=== PATIENT | female | born 1945 | race Caucasian/White ===

== ENCOUNTER → 2020-04-25 | Outpatient (CLI) | payer MEDICARE, BC ==
--- NOTE | 2020-04-25 16:31 | BD ---
EXAMINATION TYPE: Axial Bone Density DATE OF EXAM: 04/25/2020 COMPARISON: NONE CLINICAL HISTORY: Postmenopausal screening Height: 5 FT 1 3/4 IN Weight: 120 FRAX RISK QUESTIONS: Alcohol (3 or more units per day): NO Family History (Parent hip fracture): NO Glucocorticoids (More than 3mos): NO (Ex: prednisone, prednisolone, methylprednisolone, dexamethasone, and hydrocortisone). History of Fracture in Adulthood: YES Secondary Osteoporosis: 1. Type 1 Diabetes: NO 2. Hyperthyroidism: NO 3. Menopause before 45: NO 4. Malnutrition: NO 5. Chronic liver disease: NO Rheumatoid Arthritis: NO Current Tobacco Use: NO RISK FACTORS HISTORY OF: Family History of Osteoporosis: UNSURE Active: YES Postmenopausal woman: EARLY 50'S Lost more than 2 inches in height since high school: YES MEDICATIONS: Additional Medications: GABAPENTIN Additional History: EXAM MEASUREMENTS: Bone mineral densitometry was performed using the [employer] System. Bone mineral density as measured about the Lumbar spine is: ----- L1-L4(G/cm2): 0.985 T Score Values are as follows: ----- L2: -2.3 ----- L3: -1.8 ----- L4: -0.6 ----- L1-L4: -1.6 NO PREV HERE Bone mineral density about the R hip (g/cm2): 0.796 Bone mineral density about the L hip (g/cm2): 0.755 T Score values are as follows: -----R Neck: -1.7 -----L Neck: -2.0 -----R Total: -1.5 -----L Total: -1.5 NO PREV HERE IMPRESSION: Osteopenia (T Score between -2.5 and -1). There is slightly increased risk of fracture and the patient may be considered for treatment. Re-Screen 2-5 years. NOTE: T-SCORE=SD OF THE YOUNG ADULT MEAN.
--- NOTE | 2020-04-26 10:15 | MM ---
Reason for exam: screening (asymptomatic). Last mammogram was performed 2 years and 10 months ago. History: Patient is postmenopausal. Retro-pectoral implants, 1989. Excisional biopsy of the right breast, 1989. Physical Findings: A clinical breast exam by your physician is recommended on an annual basis and results should be correlated with mammographic findings. MG 3D Screen Mammo Imp/Cad Bilateral CC, MLO, and ID view(s) were taken. Prior study comparison: June 10, 2017, mammogram. May 07, 2016, mammogram. The breast tissue is heterogeneously dense. This may lower the sensitivity of mammography. There is no discrete abnormality. No significant changes when compared with prior studies. ASSESSMENT: Negative, BI-RAD 1 RECOMMENDATION: Routine screening mammogram of both breasts in 1 year.
== END | disposition home or self-care (01) ==
LOC: RADMAMWWP 12:49
PROVIDERS: ATTEND Family Medicine
DX: Z12.31 Encounter for screening mammogram for malignant neoplasm of breast (principal); M85.80 Other specified disorders of bone density and structure, unspecified site
CPT/HCPCS: 77063; 77067; 77080

== ENCOUNTER → 2021-06-21 | Outpatient (CLI) | payer MEDICARE, BC ==
--- NOTE | 2021-06-24 10:43 | MM ---
Reason for exam: screening (asymptomatic). Last mammogram was performed 1 year and 2 months ago. History: Patient is postmenopausal. Retro-pectoral implants, 1989. Excisional biopsy of the right breast, 1989. Took hormonal contraceptives for 10 years. Physical Findings: A clinical breast exam by your physician is recommended on an annual basis and results should be correlated with mammographic findings. MG 3D Screen Mammo Imp/Cad Bilateral CC, MLO, and ID view(s) were taken. Prior study comparison: April 25, 2020, bilateral MG 3d screen mammo imp/cad. June 10, 2017, mammogram. The breast tissue is heterogeneously dense. This may lower the sensitivity of mammography. Finding #1: There is a 7 mm equal density (isodense), oval mass in the outer quadrant, posterior position of the right breast. Finding #2: There are typically benign calcifications in the left breast. There is a circular 5mm left retroareolar lesion. ASSESSMENT: Incomplete: need additional imaging evaluation, BI-RAD 0 RECOMMENDATION: Special view mammogram of both breasts. If lesion persists on supplemental views, image directed ultrasound is recommended. [facility] will attempt to contact patient to return for supplemental views and ultrasound if indicated.
== END | disposition home or self-care (01) ==
LOC: RADMAMWWP 14:54
PROVIDERS: ATTEND Family Medicine
DX: Z12.31 Encounter for screening mammogram for malignant neoplasm of breast (principal); Z78.0 Asymptomatic menopausal state
CPT/HCPCS: 77063; 77067

== ENCOUNTER → 2021-07-04 | Outpatient (CLI) | payer MEDICARE, BC ==
--- NOTE | 2021-07-05 09:01 | MM ---
Reason for exam: additional evaluation requested from abnormal screening. Last mammogram was performed less than 1 month ago. History: Patient is postmenopausal. Retro-pectoral implants, 1989. Excisional biopsy of the right breast, 1989. Took hormonal contraceptives for 10 years. Physical Findings: Nurse did not find any significant physical abnormalities on exam. MG 3D Work Up W/Cad W/Imp SUE Bilateral spot compression CC and LM view(s) were taken. Prior study comparison: June 21, 2021, bilateral MG 3d screen mammo imp/cad. April 25, 2020, bilateral MG 3d screen mammo imp/cad. Bilateral nodularity persists. Ultrasound recommended. Implants intact. These results were verbally communicated with the patient and result sheet given to the patient on 07/04/21. ASSESSMENT: Incomplete: need additional imaging evaluation, BI-RAD 0 RECOMMENDATION: Ultrasound of both breasts.
--- NOTE | 2021-07-05 09:03 | USB ---
Reason for exam: additional evaluation requested from abnormal screening. History: Patient is postmenopausal. Retro-pectoral implants, 1989. Excisional biopsy of the right breast, 1989. Took hormonal contraceptives for 10 years. US Breast Workup Limited SUE Technologist: Nancy Garcia Right limited breast ultrasound including focal area of concern, retroareolar and axilla demonstrates no cystic or solid lesion seen. Left limited breast ultrasound including focal area of concern, retroareolar and axilla demonstrates a 0.5 x 0.4 x 0.6cm cystic lesion at 2 o'clock. Right scanned 6-9 o'clock. Left scanned 2-4 o'clock. These results were verbally communicated with the patient and result sheet given to the patient on 07/04/21. ASSESSMENT: Probably benign, BI-RAD 3 Benign, BI-RAD 2 finding in the left breast. Probably benign, BI-RAD 3 finding in the right breast. RECOMMENDATION: Follow-up diagnostic mammogram of the right breast in 6 months.
== END ==
LOC: RADMAMWWP 13:41
PROVIDERS: ATTEND Family Medicine
DX: N64.89 Other specified disorders of breast (principal); Z78.0 Asymptomatic menopausal state
CPT/HCPCS: 77066; 76642; G0279; 77062

== ENCOUNTER → 2022-07-07 | Outpatient (CLI) | payer MEDICARE, BC ==
--- NOTE | 2022-07-07 14:54 | BD ---
EXAMINATION TYPE: Axial Bone Density DATE OF EXAM: 07/07/2022 COMPARISON: NONE CLINICAL HISTORY: 76 years year old Female. ICD-10 CODE: Z13.820 SCREEN FOR OSTEOPOROSIS Height: 5 FT 3 IN Weight: 118 FRAX RISK QUESTIONS: Alcohol (3 or more units per day): NO Family History (Parent hip fracture): NO Glucocorticoids (More than 3mos): NO (Ex: prednisone, prednisolone, methylprednisolone, dexamethasone, and hydrocortisone). History of Fracture in Adulthood: YES Secondary Osteoporosis: 1. Type 1 Diabetes: NO 2. Hyperthyroidism: NO 3. Menopause before 45: NO 4. Malnutrition: NO 5. Chronic liver disease: NO Rheumatoid Arthritis: NO Current Tobacco Use: NO RISK FACTORS HISTORY OF: Surgery to Spine/Hip(right/left)/Wrist (right/left): NO Family History of Osteoporosis: NO Active: YES Diet low in dairy products/other sources of calcium: NO Postmenopausal woman: YES Take estrogen and/or progesterone medications: NO Lost more than 2 inches in height since high school: NO Frequent falls: NO Poor Health: GOOD Hyperparathyroidism: NO Adrenal Insufficiency: NO MEDICATIONS: Additional Medications: NO Additional History: EXAM MEASUREMENTS: Bone mineral densitometry was performed using the [employer] System. Bone mineral density as measured about the Lumbar spine is: ----- L1-L4(G/cm2): 1.008 T Score Values are as follows: ----- L1: -2.4 ----- L2: -1.9 ----- L3: -1.7 ----- L4: -0.2 ----- L1-L4: -1.4 Bone mineral density has: INCREASED 3.5 % since of: 2019 Bone mineral density about the R hip (g/cm2): 0.745 Bone mineral density about the L hip (g/cm2): 0.735 T Score values are as follows: -----R Neck: -2.1 -----L Neck: -2.2 -----R Total: -1.7 -----L Total: -1.7 Bone mineral density has: DECREASED -2.7 % since study of: 2019 FRAX%s: The graph provided illustrates a 4.8 % chance for a major osteoporotic fx and a 1.7 % chance for the hips probability for fx in 10 years time. IMPRESSION: Osteopenia (T Score between -2.5 and -1). There is slightly increased risk of fracture and the patient may be considered for treatment. Re-Screen 2-5 years. NOTE: T-SCORE=SD OF THE YOUNG ADULT MEAN.
--- NOTE | 2022-07-08 19:57 | MM ---
Reason for Exam: Screening (asymptomatic). Last screening mammogram was performed 12 month(s) ago. Patient History: Menarche at age 12. First Full-Term at age 25. Postmenopausal. Patient used Hormonal Contraceptives for 8 years. 1989, Excisional Biopsy on the Right side. 1989, Implant(s). Risk Values: Mae 5 year model risk: 2.3%. NCI Lifetime model risk: 4.7%. Prior Study Comparison: 06/21/2021 Bilateral Screening Mammogram, [facility]. 07/04/2021 Bilateral Diagnostic Mammogram, [facility]. 01/06/2022 Right MG 3D diag mammo imp w/cad RT, [facility]. Tissue Density: The breast tissue is heterogeneously dense. This may lower the sensitivity of mammography. Findings: Analyzed By CAD. There are bilateral retropectoral silicone implants. There is focal area of asymmetric density superior left MLO view at a middle depth which is more defined. No clear correlate CC view. Further evaluation is recommended. Circumscribed nodularity lateral to the retroareolar plane in the left cc view is unchanged. Otherwise, no significant change from prior exams. Overall Assessment: Incomplete: need additional imaging evaluation, BI-RAD 0 Management: Special View Mammogram of the left breast. Including 3-D CC rolled, spot 3-D MLO, and 3-D lateral views. Targeted left breast ultrasound if any persisting abnormality. [facility] will attempt to contact patient to return for supplemental views and ultrasound if indicated. Electronically signed and approved by: Erik Mccarty M.D. Radiologist
== END | disposition home or self-care (01) ==
LOC: RADBDWWP 12:32
PROVIDERS: ATTEND Family Medicine
DX: Z12.31 Encounter for screening mammogram for malignant neoplasm of breast (principal); Z13.820 Encounter for screening for osteoporosis; M85.89 Other specified disorders of bone density and structure, multiple sites; Z78.0 Asymptomatic menopausal state
CPT/HCPCS: 77063; 77067; 77080

== ENCOUNTER → 2022-07-17 | Outpatient (CLI) | payer MEDICARE, BC ==
--- NOTE | 2022-07-17 10:09 | MM ---
Reason for Exam: Additional evaluation requested from prior study. Last screening mammogram was performed less than 1 month ago. Patient History: Menarche at age 12. First Full-Term at age 25. Postmenopausal. Patient used Hormonal Contraceptives for 8 years. 1989, Excisional Biopsy on the Right side. 1989, Implant(s). Risk Values: Mae 5 year model risk: 2.3%. NCI Lifetime model risk: 4.4%. Prior Study Comparison: 07/04/2021 Bilateral Diagnostic Mammogram, [facility]. 01/06/2022 Right MG 3D diag mammo imp w/cad RT, [facility]. 07/07/2022 Bilateral MG 3D screening mammo w/cad, [facility]. Tissue Density: Left: The breast tissue is heterogeneously dense. This may lower the sensitivity of mammography. Findings: Analyzed By CAD. Retropectoral silicone implant. The asymmetric density centrally on the MLO view disperses on additional views. There is chronic underlying low density circumscribed nodularity which is unchanged. Overall Assessment: Benign, BI-RAD 2 Management: Screening Mammogram of both breasts in 1 year. 1. Patient should continue monthly self breast exams. 2. A clinical breast exam by your physician is recommended on an annual basis. 3. This exam should not preclude additional follow-up of suspicious palpable abnormalities. Results were given to the patient verbally at the time of exam. Electronically signed and approved by: Erik Mccarty M.D. Radiologist
== END | disposition home or self-care (01) ==
LOC: RADMAMWWP 09:32
PROVIDERS: ATTEND Family Medicine
DX: R92.8 Other abnormal and inconclusive findings on diagnostic imaging of breast (principal); Z78.0 Asymptomatic menopausal state
CPT/HCPCS: 77065; G0279; 77061

== ENCOUNTER → 2023-07-20 | Outpatient (CLI) | payer MEDICARE, BC ==
--- NOTE | 2023-07-21 09:11 | MM ---
Reason for Exam: Screening (asymptomatic). Last mammogram was performed 1 year(s) and 1 month(s) ago. Patient History: Menarche at age 12. First Full-Term at age 25. Postmenopausal. Patient has history of breast feeding. Patient used Hormonal Contraceptives for 8 years. 1989, Excisional Biopsy on the Right side. 1989, Bilateral Implants. Risk Values: Mae 5 year model risk: 2.3%. NCI Lifetime model risk: 4.0%. Prior Study Comparison: 01/06/2022 Right MG 3D diag mammo imp w/cad RT, [facility]. 07/07/2022 Bilateral MG 3D screening mammo w/cad, [facility]. 07/17/2022 Left MG 3D work up w/cad , [facility]. Tissue Density: The breast tissue is heterogeneously dense. This may lower the sensitivity of mammography. Findings: Analyzed By CAD. There is no suspicious group of microcalcifications or new suspicious mass in either breast. Bilateral implants are intact. Overall Assessment: Benign, BI-RAD 2 Management: Screening Mammogram of both breasts in 1 year. . Patient should continue monthly self-breast exams. A clinical breast exam by your physician is recommended on an annual basis. This exam should not preclude additional follow-up of suspicious palpable abnormalities. Note on Mae scores and lifetime risk: 1. A Mae score greater than 3% is considered moderate risk. If this is the case, consider specialist referral to assess eligibility for a risk reducing agent. 2. If overall lifetime risk for the development of breast cancer is 20% or higher, the patient may qualify for future screening with alternating mammogram and breast MRI. Electronically signed and approved by: Remy Orellana M.D. Radiologis
== END | disposition home or self-care (01) ==
LOC: RADMAMWWP 10:57
PROVIDERS: ATTEND Family Medicine
DX: Z12.31 Encounter for screening mammogram for malignant neoplasm of breast (principal); Z78.0 Asymptomatic menopausal state; Z98.82 Breast implant status
CPT/HCPCS: 77063; 77067

== ENCOUNTER 2024-06-24 09:50 | Emergency (ER) | payer MEDICARE, BC ==
--- NOTE | 2024-06-24 10:14 | ED ---
Upper Extremity HPI - General Source: patient, RN notes reviewed Mode of arrival: ambulatory Limitations: no limitations <Susanna Newman - Last Filed: 06/24/24 11:10> <Jonathan Alegria - Last Filed: 06/24/24 13:40> - General Chief Complaint: Extremity Injury, Upper Stated Complaint: arm injury Time Seen by Provider: 06/24/24 10:08 - History of Present Illness Initial Comments: This is a 78-year-old female is presenting to the emergency department for chief complaint of left wrist pain. Patient said earlier before arrival she tripped and she was outside and fell onto her outstretched left wrist. She denies hitting her head or loss of consciousness. No blood thinner use. Patient denies paresthesias. States that she has pain of the wrist and there is a mild deformity present as well. She denies injury to the left elbow, shoulder or chest. Denies previous surgeries to the left hand or wrist. (Susanna Newman) - Related Data Previous Rx's Medication Instructions Recorded HYDROcodone/APAP 5-325MG [[place] 1 tab PO Q6HR PRN 3 Days #12 tab 06/24/24 5-325] Allergies Allergy/AdvReac Type Severity Reaction Status Date / Time No Known Allergies Allergy Verified 06/24/24 10:03 Review of Systems ROS Other: All systems not noted in ROS Statement are negative. <Susanna Newman - Last Filed: 06/24/24 11:10> ROS Other: All systems not noted in ROS Statement are negative. <Jonathan Alegria - Last Filed: 06/24/24 13:40> ROS Statement: Those systems with pertinent positive or pertinent negative responses have been documented in the HPI. Past Medical History Past Medical History: No Reported History History of Any Multi-Drug Resistant Organisms: None Reported Past Surgical History: Tonsillectomy, Tubal Ligation Past Psychological History: No Psychological Hx Reported Smoking Status: Never smoker Past Alcohol Use History: None Reported Past Drug Use History: None Reported <Susanna Newman - Last Filed: 06/24/24 11:10> General Exam Limitations: no limitations <Susanna Newman - Last Filed: 06/24/24 11:10> Course Vital Signs 06/24/24 06/24/24 06/24/24 10:00 12:44 12:50 Temperature 97.3 F L Pulse Rate 66 65 65 Respiratory 16 13 10 L Rate Blood Pressure 144/82 129/79 137/84 O2 Sat by Pulse 98 99 97 Oximetry 06/24/24 06/24/24 12:53 12:58 Temperature Pulse Rate 74 79 Respiratory 12 20 Rate Blood Pressure 129/78 138/80 O2 Sat by Pulse 99 100 Oximetry Procedures - Orthopedic Fracture Reduction Fracture #1 Consent Obtained: verbal consent, written consent Side: left Fracture Reduction Location: radius Analgesia: procedural sedation Technique: direct manipulation Post-Reduction Neuro Exam: intact Post-Reduction Vascular Exam: intact Splint Applied: Yes Patient Tolerated Procedure: well - Procedural Sedation *Procedural Sedation Start Time: 12:45 *Procedural Sedation Stop Time: 12:48 *Risks,benefits, and alternative therapies discussed?: Yes *Patient indicates understanding of risk/benefit discussion?: Yes *Indications: fracture/dislocation reduction *Previous Adverse Reaction to Anesthesia/Sedation?: No * Testing Complete?: No Reason Test Not Complete:: Age > 60 *ASA Class: II *Mallampati Airway Score: 2 Preparation: monitoring specialist applied, pulse oximeter, capnometry used, supplemental O2 applied, reversal agents at bedside, suction/airway equipment at bedside, IV secured IV Propofol Dose (mgs): 50 Complications: none Interventions: use of reversal agent <Jonathan Alegria - Last Filed: 06/24/24 13:40> Medical Decision Making <Susanna Newman - Last Filed: 06/24/24 11:10> <Jonathan Alegria - Last Filed: 06/24/24 13:40> - Medical Decision Making Was pt. sent in by a medical professional or institution (KONRAD Taylor, SENIOR ADMINISTRATOR SUPPORT, urgent care, hospital, or group home...) When possible be specific @ -[No] Did you speak to anyone other than the patient for history (EMS, parent, family, police, friend...)? What history was obtained from this source @ -[No] Did you review nursing and triage notes (agree or disagree)? Why? @ -[I reviewed and agree with nursing and triage notes] Were old charts reviewed (outside hosp., previous admission, EMS record, old EKG, old radiological studies, urgent care reports/EKG's, group home records)? Report findings @ -[No old charts were reviewed] Differential Diagnosis (chest pain, altered mental status, abdominal pain women, abdominal pain men, vaginal bleeding, weakness, fever, dyspnea, syncope, headache, dizziness, GI bleed, back pain, seizure, CVA, palpatations, mental health, musculoskeletal)? @ -Differential Musculoskeletal Muscular strain, contusion, ligament sprain, fracture, arthritis, septic arthritis, bursitis, cellulitis, muscle spasm, nerve compression, DVT, arterial occlusion, herpes zoster, electrolyte abnormality, tumor.... This is not meant to be in all inclusive list EKG interpreted by me (3pts min.). @ -[As above] X-rays interpreted by me (1pt min.). @ -X-ray of the left wrist remarkable for a comminuted intra-articular displaced fracture of the radius with a displaced ulnar distal styloid fracture CT interpreted by me (1pt min.). @ -[None done] U/S interpreted by me (1pt. min.). @ -[None done] What testing was considered but not performed or refused? (CT, X-rays, U/S, labs)? Why? @ -[None] What meds were considered but not given or refused? Why? @ -[None] Did you discuss the management of the patient with other professionals (professionals i.e. , PA, SENIOR ADMINISTRATOR SUPPORT, lab, RT, psych nurse, social media designer, intelligence engineer, teacher, chief safety officer, window caser)? Give summary @ -[No] Was smoking cessation discussed for >3mins.? @ -[No] Was critical care preformed (if so, how long)? @ -[No] Were there social determinants of health that impacted care today? How? (Homelessness, low income, unemployed, alcoholism, drug addiction, transporta tion, low edu. Level, literacy, decrease access to med. care, senior care, rehab)? @ -[No] Was there de-escalation of care discussed even if they declined (Discuss DNR or withdrawal of care, Hospice)? DNR status @ -[No] What co-morbidities impacted this encounter? (DM, HTN, Smoking, COPD, CAD, Cancer, CVA, ARF, Chemo, Hep., AIDS, mental health diagnosis, sleep apnea, morbid obesity)? @ -[None] Was patient admitted / discharged? Hospital course, mention meds given and route, prescriptions, significant lab abnormalities, going to OR and other pertinent info. @ -[hospital course] Undiagnosed new problem with uncertain prognosis? @ -[No] Drug Therapy requiring intensive monitoring for toxicity (Heparin, Nitro, Insulin, Cardizem)? @ -[No] Were any procedures done? @ -[No] Diagnosis/symptom? @ -[default] Acute, or Chronic, or Acute on Chronic? @ -[default] Uncomplicated (without systemic symptoms) or Complicated (systemic symptoms)? @ -[default] Side effects of treatment? @ -[No] Exacerbation, Progression, or Severe Exacerbation? @ -[No] Poses a threat to life or bodily function? How? (Chest pain, [place], [place], pneumonia, PE, COPD, DKA, ARF, appy, cholecystitis, CVA, Diverticulitis, Homicidal, Suic idal, threat to staff... and all critical care pts) @ -[No] (Susanna Newman) SUPERVISORY NOTE: I have reviewed all documentation, results, and performed the MDM in its entirety, which constitutes a substantive portion of the visit. Patient was seen and evaluated along with physician mobile unit assistant. Briefly, patient 78-year-old female presents with left wrist injury after fall on outstretched hand. Patient any other symptoms. Risk and benefits were discussed regarding procedural sedation for distal radius fracture reduction. Tolerated the procedure well. Repeat postprocedural x-rays shows good reduction. Patient observed emergency department after sedation. Patient reevaluated at 1:45 PM found to be in stable medication. Patient discharged with outpatient referral to hand specialist (Jonathan Alegrai) Disposition <Susanna Newman - Last Filed: 06/24/24 11:10> Is patient prescribed a controlled substance at d/c from ED?: Yes If prescribed controlled substance>3 days was MAPS reviewed?: Prescribed <3 Days Time of Disposition: 13:40 <Jonathan Alegria - Last Filed: 06/24/24 13:40> Clinical Impression: Wrist fracture Disposition: HOME SELF-CARE Condition: Good Instructions (If sedation given, give patient instructions): Arm Fracture in Adults (ED) Prescriptions: HYDROcodone/APAP 5-325MG [[place] 5-325] 1 tab PO Q6HR PRN 3 Days #12 tab PRN Reason: Severe Pain Referrals: Kim Giang DO [Doctor of Osteopathic Medicine] - 1-2 days Bao Montiel MD [STAFF PHYSICIAN] - 1-2 days
--- NOTE | 2024-06-24 11:06 | XR ---
EXAMINATION TYPE: XR wrist complete LT DATE OF EXAM: 06/24/2024 COMPARISON: NONE CLINICAL INDICATION: Female, 78 years old with history of fall; TECHNIQUE: Four views submitted. FINDINGS: Diffuse demineralization. There is significant scaphoid trapezial and first carpal metacarpal and fir st MCP joint arthropathy. Comminuted intra-articular displaced fracture of the distal radius. Displac ed ulnar styloid fracture. Volar angulation of the fracture. Cutaneous soft tissue edema. IMPRESSION: 1. Comminuted intra-articular displaced fracture of the radius. 2. Displaced ulnar distal styloid fracture. [facility], , 06/24/2024 11:04 AM
[2024-06-24] MEDS: HYDROmorphone 1 MG/ML 1 ML SYRINGE IVP STA (11:30)
[2024-06-24] MEDS: PROPOFOL 10 MG/ML 20 ML VIAL IV ONE (12:44)
--- NOTE | 2024-06-24 13:26 | XR ---
EXAMINATION TYPE: XR wrist limited LT DATE OF EXAM: 06/24/2024 COMPARISON: 06/24/2024 CLINICAL INDICATION: Female, 78 years old with history of post reduction; TECHNIQUE: Four views submitted. FINDINGS: A persistent comminuted nondisplaced intra-articular fracture of the distal radius with significant i mprovement in displacement relative to prior exam. Displaced ulnar fracture stable. Widening of the s capholunate joint can be associated with ligamentous injury. Significant narrowing of the scaphotrape zial and moderate narrowing of the first carpal metacarpal joint in a pattern suggestive of osteoarth ritis. Generalized osteopenia. IMPRESSION: 1. Improved alignment post reduction distal comminuted radial intra-articular fracture. 2. Widening of the scapholunate joint can be associated with ligamentous injury. 3. Stable distal ulnar fracture. [facility], , 06/24/2024 1:24 PM
[2024-06-24] MEDS: ONDANSETRON 4 MG/2 ML VIAL IVP STA (14:06)
[2024-06-24] MEDS: ONDANSETRON 4 MG ODT STARTER PACK 2 TAB BTL PO STA (14:07)
--- NOTE | 2024-06-24 14:11 | ED ---
Disposition Clinical Impression: Wrist fracture Disposition: HOME SELF-CARE Condition: Good Instructions (If sedation given, give patient instructions): Arm Fracture in Adults (ED) Prescriptions: HYDROcodone/APAP 5-325MG [[place] 5-325] 1 tab PO Q6HR PRN 3 Days #12 tab PRN Reason: Severe Pain Is patient prescribed a controlled substance at d/c from ED?: No Referrals: Bao Montiel MD [STAFF PHYSICIAN] - 1-2 days Kim Giang DO [Doctor of Osteopathic Medicine] - 1-2 days Time of Disposition: 16:02 Procedures - [place] Protocol (Time Out) Procedure Performed:: left wrist reduction Performing Provider: Jonathan Alegria Nurse: Ariane Carpenter Respiratory Therapist: Katlyn Paez Patient Identification (2 identifiers required): Verbal, Arm Band, Name, Birthdate Site: left wrist Site Marked: Yes
[2024-06-24] MEDS: HYDROcodone/APAP 5-325MG 1 EACH TAB PO STA (14:14)
[2024-06-24 14:22] VITALS: BP 139/79; PULSE 70; RESP 16; TEMP 97.9
== END 2024-06-24 14:22 | disposition home or self-care (01) ==
LOC: EC 09:50
DX: S52.502A Unspecified fracture of the lower end of left radius, initial encounter for closed fracture (principal); W01.0XXA Fall on same level from slipping, tripping and stumbling without subsequent striking against object, initial encounter
CPT/HCPCS: 73100; 73110; 99283; 96374; 96375; J2405; J1171; S0119; J2704

== ENCOUNTER → 2024-06-27 | Outpatient (CLI) | payer MEDICARE, BC ==
--- NOTE | 2024-06-27 12:15 | CT ---
EXAMINATION TYPE: CT wrist LT wo con CT DLP: 114 mGycm, Automated exposure control for dose reduction was used. DATE OF EXAM: 06/27/2024 11:45 AM COMPARISON: Left wrist radiographs 06/24/2024. CLINICAL INDICATION:Female, 78 years old with history of M25.332 OTHER INSTABILITY, LEFT WRIST; PHH, Presurgical planning left wrist TECHNIQUE: Axial images were obtained of the left wrist without the use of IV contrast. Additional c oronal and sagittal reformatted images and soft tissue and bone window were obtained for review. 3-D reconstruction was created on a separate workstation. FINDINGS: Diffuse bone demineralization. Redemonstration of comminuted mildly displaced distal radius fracture with intra-articular extension to the radial ulnar joint and radiocarpal joint. Mild amount of shorte trinity identified measuring up to 3-4 mm with minimal volar angulation. Redemonstration of comminuted minimally displaced distal ulnar fracture with extension to the radial ulnar joint. Additional comminuted fracture of the ulnar styloid process. There is surrounding soft t issue edema the wrist. There is widening of the scaphoid lunate interval measuring up to 2.6 mm. Redemonstration of significant scaphoid trapezial and first carpal metacarpal and first MCP joint art hropathy. There is some foci of gas identified within the dorsal soft tissues of the wrist which may be venous in origin from prior IV access. IMPRESSION: 1. Redemonstration of acute comminuted mildly displaced distal radius fracture with intra-articular extension. 2. Redemonstration of acute nondisplaced fractures of the distal ulna and ulnar styloid process. 3. There is again widening of the scapholunate interval suggesting ligamentous injury. [facility], , 06/27/2024 12:13 PM
== END | disposition home or self-care (01) ==
LOC: RADCTMAIN 11:03
PROVIDERS: ATTEND Orthopaedic Surgery
DX: S52.572A Other intraarticular fracture of lower end of left radius, initial encounter for closed fracture (principal); M25.332 Other instability, left wrist; R60.9 Edema, unspecified; Z01.818 Encounter for other preprocedural examination; M18.12 Unilateral primary osteoarthritis of first carpometacarpal joint, left hand

== ENCOUNTER → 2024-09-07 | Outpatient (CLI) | payer MEDICARE, BC ==
--- NOTE | 2024-09-07 13:00 | MM ---
Reason for Exam: Screening (asymptomatic). Last mammogram was performed 1 year(s) and 1 month(s) ago. Patient History: Menarche at age 12. First Full-Term at age 25. Postmenopausal. Patient has history of breast feeding. Patient used Hormonal Contraceptives for 8 years. 1989, Excisional Biopsy on the Right side. 1989, Bilateral Implants. Risk Values: Mae 5 year model risk: 2.2%. NCI Lifetime model risk: 3.7%. Prior Study Comparison: 07/07/2022 Bilateral MG 3D screening mammo w/cad, [facility]. 07/17/2022 Left MG 3D work up w/cad LT, [facility]. 07/20/2023 Bilateral MG 3D screen mammo imp/cad., [facility]. Tissue Density: The breasts are heterogeneously dense, which may obscure small masses. Findings: Analyzed By CAD. Bilateral retropectoral silicone implants are redemonstrated. There is no suspicious group of microcalcifications or new suspicious mass in either breast. Overall Assessment: Benign, BI-RAD 2 Management: Screening Mammogram of both breasts in 1 year. Patient should continue monthly self-breast exams. A clinical breast exam by your physician is recommended on an annual basis. This exam should not preclude additional follow-up of suspicious palpable abnormalities. Note on Mae scores and lifetime risk: 1. A Mae score greater than 3% is considered moderate risk. If this is the case, consider specialist referral to assess eligibility for a risk reducing agent. 2. If overall lifetime risk for the development of breast cancer is 20% or higher, the patient may qualify for future screening with alternating mammogram and breast MRI. [facility], , 09/07/2024 12:56 PM. Electronically signed and approved by: Erik Mccarty M.D. Radiologist
== END | disposition home or self-care (01) ==
LOC: RADMAMWWP 12:28
PROVIDERS: ATTEND Family Medicine
DX: Z12.31 Encounter for screening mammogram for malignant neoplasm of breast (principal); Z78.0 Asymptomatic menopausal state; Z98.82 Breast implant status; R92.333 Mammographic heterogeneous density, bilateral breasts
CPT/HCPCS: 77063; 77067